=== PATIENT | male | born 1975 | race Caucasian/White ===

== ENCOUNTER 2017-02-17 09:08 | Inpatient (IN) | payer OTHER ==
[~2017-02-17] VITALS: Ht 177.8 cm; Wt 74.8 kg
[2017-02-17 12:23] VITALS: BP 126/90
--- NOTE | 2017-02-17 12:26 | NUR ---
PRE-ADMISSION Pt is a 41 yr old male AA&Ox4. Pt is presenting himself to [facility] for meth use. Pt is observed with increase anxiety m/b difficulty staying still. Pt states he fell fatigue. VS are WNL BP 126/90, P 84, R 18, T 97.6, O2 94%. Pt states he does not eat Pork or Beef. Pt is in stable condition to be admitted to unit. Dr. Sousa is made aware. Will continue to monitor.
[2017-02-17] MEDS ORDERED: DIVA500T4 PO (12:41)
[2017-02-17] MEDS ORDERED: ARIP5TAB10 PO (12:41)
[2017-02-17] MEDS ORDERED: LOPERAMIDE HCL 2 MG CAPSULE PO PRN ×2 (13:00)
[2017-02-17] MEDS ORDERED: METHOCARBAMOL 750 MG TABLET PO PRN (13:00)
[2017-02-17] MEDS ORDERED: MAG HYDROX/AL HYDROX/SIMETH 30 ML LIQUID UDC PO PRN (13:00)
[2017-02-17] MEDS ORDERED: HYDROXYZINE PAMOATE 25 MG CAPSULE PO PRN (13:00)
[2017-02-17] MEDS ORDERED: ONDANSETRON ODT 4 MG TAB.RAPDIS SL PRN (13:00)
[2017-02-17] MEDS ORDERED: IBUPROFEN 600 MG TABLET PO PRN (13:00)
[2017-02-17] MEDS ORDERED: CLONIDINE HCL 0.1 MG TABLET PO PRN (13:00)
[2017-02-17] MEDS ORDERED: MIRALAX 17 GM POWD.PACK PO PRN (13:00)
[2017-02-17] MEDS ORDERED: ACETAMINOPHEN 325 MG TABLET PO PRN (13:00)
[2017-02-17] MEDS ORDERED: DICYCLOMINE HCL 20 MG TABLET PO PRN (13:00)
[2017-02-17] MEDS ORDERED: diphenhydrAMINE 50 MG CAPSULE PO PRN (13:00)
--- NOTE | 2017-02-17 13:26 | NUR ---
ADMISSION NOTE Pt is a 41 yr old male, AA&Ox4. Pt is presenting himself to [facility] for Meth use. Pt is observed with increase anxiety m/b difficulty staying still. Pt is c/o feeling tired. Body is check was complete. Skin is intact, warm and dry to touch. Pt is observed fidgety. Lung sounds are clear. Pt states of allergies to Pork and Beef. Pt is full code, regular diet and NKA. Pt states oh medical hx of Bipolar disorder and is currently in Depakote 500mg and Abilify 5mg. Medication was reconciled and reported to Psychiatrist. Pt denies any PCP but is currently seeing a Psychiatrist by name of Dr. Jeremias Martinez. Pt states of going to AA/NA meeting but has relapse several times due to "stressful event". Pt states longest sobriety was 5 years, 7 years ago. Pt states he is more motivated of getting sober and is worried about his health. SUBSTANCE USE: Methamphetamine - pt states he first started using meth 20 years ago. Pt states he relapsed 8 days ago and used 3.5g IV of meth within 8 days. Last use was on 02/16/17, Pt states he used 0.5g IV at 2100. Pt denies smoking cigarettes or using any other substance. Urine drug screen is pending. Pt state this is the first time in treatment. Pt was seen and examined by Dr. Sousa. Pt was educated on plan of care and medication regimen. Pt was able to verbalize understanding. Pt was oriented around unit and equipment in room. Safety precautions observed. Call light is within reach. Will continue to monitor.
--- NOTE | 2017-02-17 15:14 | NUR ---
ENDORSEMENT GIVEN Endorsement given to [employer] nurse to continue with care.
--- NOTE | 2017-02-17 15:15 | NUR ---
Assumed Care: Received care for the patient at this time. Patient is a 41 year old male admitted for methamphetamine dependence. Prior to admission, patient was using 3.5 grams of methamphetamine within 8 days via IV. Has past medical hx of bipolar disorder. Allergic to pork and beef. FULL CODE. Regular diet. On fall and seizure precautions. Patient is seen in bed at this time. Attempting to rest and fall asleep. Noted with minimal restlessness. Reassurance provided. Educated patient on the current plan of care. Will continue to monitor the patient for the rest of the shift.
[2017-02-17 16:00] VITALS: BP 124/86
--- NOTE | 2017-02-17 19:02 | NUR ---
End of Shift Notes: Patient continues to be on PRNs at this time. Withdrawal symptoms were closely monitored. Noted with mild restlessness, anxiety. VS monitored closely. No significant abnormalities noted. Encouraged patient to participate in group and activities for redirection. All needs met and attended. Will continue to monitor closely.
[2017-02-17 19:17] LABS: *AMPHETAMINE, URINE POSITIVE (NEGATIVE); *BARBITURATE, URINE NEGATIVE (NEGATIVE); *CANNABINOID, URINE NEGATIVE (NEGATIVE); *COCCAINE, URINE NEGATIVE (NEGATIVE); *OPIATE, URINE NEGATIVE (NEGATIVE); *PHENCYCLIDINE SCREEN,URINE NEGATIVE (NEGATIVE)
--- NOTE | 2017-02-17 19:30 | NUR ---
Start of Shift Notes Received a 41 year old male admitted 0n 02/17/2017 for methamphetamine dependence. Has past medical hx of bipolar disorder. Allergic to pork and beef. FULL CODE. Regular diet. On fall and seizure precautions. During the rounds at 1930, verbalized generalized body aches 7/10 and wanted to sleep, and anxiety is on mild to moderate side. We'll continue to monitor.
[2017-02-17 20:00] VITALS: BP 105/64
[2017-02-17] MEDS: DIVALPROEX ER 500 MG TAB.SR.24H PO SCH (20:06)
[2017-02-17] MEDS: ARIPIPRAZOLE 5 MG TABLET PO SCH (20:06)
--- NOTE | 2017-02-17 20:06 | NUR ---
PRN Robaxin Px complained of generalized body aches 10/16. Robaxin 750 mg/tab, 1 tab given PO as PRN med. We'll continue to monitor.
[2017-02-17 20:47] LABS: BASOPHILS # (AUTO) 0.1 K/uL (0.0-8.0); BASOPHILS % (AUTO) 1.2 % (0.0-2.0); EOSINOPHILS # (AUTO) 0.2 K/uL (0.0-0.7); EOSINOPHILS % (AUTO) 4.2 % (0.0-7.0); HEMATOCRIT 47.2 % (40-50); HEMOGLOBIN 15.1 G/DL (14.0-18.0); LYMPHOCYTES # (AUTO) 1.5 K/UL (0.8-4.8); LYMPHOCYTES % (AUTO) 29.9 % (20.5-51.5); MEAN CORPUSCULAR HEMOGLOBIN 29.2 UUG (27.0-31.0); MEAN CORPUSCULAR HGB CONC 32 g/dL (32.0-37.0); MEAN CORPUSCULAR VOLUME 91.5 FL (82.0-92.0); MONOCYTES # (AUTO) 0.5 K/UL (0.1-1.30); MONOCYTES % (AUTO) 10.1 % (0.0-11.0); NEUTROPHILS # (AUTO) 2.6 K/UL (1.8-8.9); NEUTROPHILS % (AUTO) 54.6 % (38.5-71.5); PLATELET COUNT (AUTO) 284 K/UL (150-450); RED BLOOD CELL COUNT(AUTO) 5.15 MIL/UL (4.7-6.1); WHITE BLOOD COUNT (AUTO) 4.9 K/UL (4.0-11.2)
[2017-02-17 20:58] LABS: ETHANOL < 3 MG/DL (0-0)
[2017-02-17 21:00] LABS: ALANINE AMINOTRANSFERASE 28 U/L (16-63); ALKALINE PHOSPHATASE 42 U/L (50-136); ASPARTATE AMINOTRANSFERASE 12 U/L (15-37); BILIRUBIN,TOTAL 0.4 mg/dL (0.2-1.0); CARBON DIOXIDE 29 mmol/L (21-32); CHLORIDE 102 mmol/L (98-107); GLUCOSE 94 mg/dL (74-106); MAGNESIUM 2.1 mg/dL (1.8-2.4); POTASSIUM 3.8 mmol/L (3.5-5.1); TOTAL PROTEIN, SERUM 6.6 g/dL (6.4-8.2); UREA NITROGEN, BLOOD 12 mg/dL (7-18)
[2017-02-18] VITALS: BP 107/76
[2017-02-18 04:00] VITALS: BP 122/73
--- NOTE | 2017-02-18 07:06 | NUR ---
End of Shift Notes 41 year old male admitted 0n 02/17/2017 for methamphetamine dependence. Has past medical hx of bipolar disorder. Allergic to pork and beef. FULL CODE. Regular diet. On fall and seizure precautions. During the rounds at 1930, verbalized generalized body aches /10 and wanted to sleep, and anxiety on mild to moderate side. Robaxin 750 mg/tab, 1 tab given PO as PRN med. Oral intake of 500 ml, voided 1x, no BM. Slept for 9.5 hrs. Safety measures in place, call light within reach, side rails up x2, bed locked and in low position. We'll continue to monitor.
--- NOTE | 2017-02-18 07:30 | NUR ---
START OF SHIFT Pt is a 41 yr old male, AA&OX4. Pt was admitted on for Methamphetamine use and is on PRN's for comfort measures. Pt is full code, regular diet and allergies to pork and beef. Pt received Robaxin PRN during the night, medication was effective. Pt slept for 10 hrs. Pt is currently in bed resting with respirations even and unlabored. No acute distress noted. Skin is intact, warm and dry to touch. Safety precautions observed. Bed kept in low position and locked with side rails up x2. Call light is within reach. Will continue to monitor.
[2017-02-18 08:00] VITALS: BP 120/77
[2017-02-18] MEDS ORDERED: TUBERCULIN,PURIF.PROT.DERIV. 5 TU/0.1 ML TEST ID ONE (09:00)
--- NOTE | 2017-02-18 09:00 | NUR ---
TB REFUSED Pt refused to have PPD done. Dr. Sousa was made aware.
[2017-02-18 12:00] VITALS: BP 139/95
[2017-02-18 16:00] VITALS: BP 111/76
--- NOTE | 2017-02-18 18:58 | NUR ---
END OF SHIFT Pt is a 41 yr old male, AA&OX4. Pt was admitted on for Methamphetamine use and is on PRN's for comfort measures. Pt is full code, regular diet and allergies to pork and beef. Pt has been observed with increase drowsiness and been in bed throughout the day. Pt refused to attend group sessions. Pt was able to eat 100% of meal. Pt is to be discharged tomorrow to [facility]. Pt is currently in bed resting with respirations even and unlabored. No acute distress noted. Skin is intact, warm and dry to touch. Safety precautions observed. Bed kept in low position and locked with side rails up x2. Call light is within reach.
--- NOTE | 2017-02-18 19:15 | NUR ---
Start of shift note Received report from day shift nurse. Pt is a 41 yo male, A+Ox4, presenting to [facility] for Methamphetamine dependence. Pt has Allergies to Pork and beef, is on Full code status, and on Regular diet. Pt is on Fall precautions. Pt has HX of Bipolar disorder. Pt is on PRN medications, tolerated well, and is due for discharge tomorrow. No s/s of distress noted at this time. Respirations even and unlabored. Will continue to monitor.
[2017-02-18 20:43] VITALS: BP 114/72
[2017-02-18] MEDS: ARIPIPRAZOLE 5 MG TABLET PO SCH (21:19)
[2017-02-18] MEDS: DIVALPROEX ER 500 MG TAB.SR.24H PO SCH (21:19)
[2017-02-19 00:15] VITALS: BP 118/76
[2017-02-19 04:11] VITALS: BP 117/73
--- NOTE | 2017-02-19 06:52 | NUR ---
End of shift note Pt is a 41 yo male, A+Ox4, presenting to [facility] for Methamphetamine dependence. Pt has Allergies to Pork and beef, is on Full code status, and on Regular diet. Pt is on Fall precautions. Pt has HX of Bipolar disorder. Pt is on PRN medications, tolerated well, and is due for discharge today. Pt slept for a total of 9 HRS. No s/s of distress noted at this time. Respirations even and unlabored. Will endorse to day shift nurse.
--- NOTE | 2017-02-19 07:37 | NUR ---
START OF SHIFT Pt is a 41 yr old male, AA&OX4. Pt was admitted on for Methamphetamine use and is on PRN's for comfort measures. Pt is full code, regular diet and allergies to pork and beef. No PRN's were given during the night. Pt slept for 9 hrs. Pt is currently in bed resting with respirations even and unlabored. No acute distress noted. Skin is intact, warm and dry to touch. Pt is to be discharged today to [facility] Safety precautions observed. Bed kept in low position and locked with side rails up x2. Call light is within reach. Will continue to monitor.
[2017-02-19 08:00] VITALS: BP 108/69
--- NOTE | 2017-02-19 09:40 | NUR ---
DISCHARGE NOTE Pt is a 41 yr old male, AA&Ox4. Pt was admitted on 02/17/17 for methamphetamine dependency and was on PRN's for comfort measures. Pt was cooperative with plan of care. Pt was educated on discharged plan and prescriptions. Pt was able to verbalize understanding. Pt left the unit at 0935 on 02/19/17 in stable condition. Pt was discharged to [facility]. Pt left the unit with all belongings, valuables and home medication.
[2017-02-19 10:07] LABS: HEPATITIS B SURFACE AG Negative (Negative)
== END 2017-02-19 09:35 | disposition other institution (70) | DRG 895 ==
LOC: EDSEX 11:40 → SRC 11:40
PROVIDERS: ADMIT Internal Medicine; ATTEND Internal Medicine
PROC: HZ2ZZZZ Detoxification Services for Substance Abuse Treatment (ICD-10-PCS; principal; 2017-02-17)
PROC: HZ41ZZZ Group Counseling for Substance Abuse Treatment, Behavioral (ICD-10-PCS; 2017-02-18)
DX: F15.23 Other stimulant dependence with withdrawal (principal); F31.9 Bipolar disorder, unspecified; Z91.018 Allergy to other foods; Z81.1 Family history of alcohol abuse and dependence; Z80.9 Family history of malignant neoplasm, unspecified; Z79.899 Other long term (current) drug therapy
CPT/HCPCS: 36415; 70030-TC; 80307; 80324; 83735; 85025; 86592; 86705; 86803; 87340; 87806; A4663; G0480